=== PATIENT | male | born 1995 | race Caucasian/White ===

== ENCOUNTER 2019-01-05 16:52 | Emergency (ER) | payer SELFPAY ==
--- NOTE | 2019-01-05 17:36 | ER Document Report ---
ED Medical Screen (RME) - General Chief Complaint: Chest Pain Stated Complaint: CHEST PAIN Time Seen by Provider: 01/05/19 17:11 Primary Care Provider: RUCHI WADE MD [Primary Care Provider] - Follow up as needed Notes: 23-year-old male patient reports a 3-day history of substernal chest pain that is almost constant. It disrupts sleep. He reports there is pain with breathing and makes him feel short of breath. He describes the pain is sharp in nature that "brings me to my knees". He also states "I am dazed out", and nausea without vomiting. He also reports she has numbness that involves the entire lef t arm. His past medical history is noncontributory. He reports a family history of a grandfather having a heart attack at age 40, and grandmother with heart attack at some point. His mother has multiple medical problems but no cardiac issues. He does not know about his father's health but knows that he is alive and active. He is somewhat anxious due to his family history. I have greeted and performed a rapid initial assessment of this patient. A comprehensive ED assessment and evaluation of the patient, analysis of test results and completion of the medical decision making process will be conducted by additional ED providers. TRAVEL OUTSIDE OF THE [place] IN LAST 30 DAYS: No - Related Data Allergies/Adverse Reactions: No Known Allergies Allergy (Verified 01/05/19 17:09) Past Medical History - Social History Frequency of alcohol use: None Drug Abuse: None Renal/ Medical History: Denies: Hx Peritoneal Dialysis Past Surgical History: Reports: Hx Nose Surgery - Immunizations Immunizations up to date: Yes Hx Diphtheria, Pertussis, Tetanus Vaccination: No Physical Exam - Vital signs Vitals: Temp Pulse Resp BP Pulse Ox 99 F 83 18 129/85 H 97 01/05/19 17:05 01/05/19 17:05 01/05/19 17:05 01/05/19 17:05 01/05/19 17:05 Course - Vital Signs Vital signs: Temp Pulse Resp BP Pulse Ox 99 F 83 18 129/85 H 97 01/05/19 17:05 01/05/19 17:05 01/05/19 17:05 01/05/19 17:05 01/05/19 17:05 Doctor's Discharge - Discharge Referrals: RUCHI WADE MD [Primary Care Provider] - Follow up as needed
--- NOTE | 2019-01-05 17:57 | RADIOLOGY REPORT (SQ) ---
EXAM DESCRIPTION: CHEST 2 VIEWS COMPLETED DATE/TIME: 01/05/2019 5:49 pm REASON FOR STUDY: chest pain COMPARISON: None. EXAM PARAMETERS: NUMBER OF VIEWS: two views TECHNIQUE: Digital Frontal and Lateral radiographic views of the chest acquired. RADIATION DOSE: NA LIMITATIONS: none FINDINGS: LUNGS AND PLEURA: No opacities, masses or pneumothorax. No pleural effusion. MEDIASTINUM AND HILAR STRUCTURES: No masses or contour abnormalities. HEART AND VASCULAR STRUCTURES: Heart normal size. No evidence for failure. BONES: No acute findings. HARDWARE: None in the chest. OTHER: No other significant finding. IMPRESSION: NO ACUTE RADIOGRAPHIC FINDING IN THE CHEST. TECHNICAL DOCUMENTATION: JOB ID: [id number] [employer]- All Rights Reserved Reading location - IP/workstation name: [email or web address]
[2019-01-05 18:18] LABS: ABSOLUTE EOSINOPHILS # (AUTO) 0.2 10^3/uL (0.0-0.6); ABSOLUTE LYMPHOCYTES (AUTO) 1.6 10^3/uL (0.5-4.7); ABSOLUTE MONOCYTES (AUTO) 0.8 10^3/uL (0.1-1.4); ABSOLUTE NEUT (AUTO) 4.2 10^3/uL (1.7-8.2); BASOPHILS % (AUTO) 0.4 % (0-2); EOSINOPHILS % (AUTO) 2.6 % (0-6); HEMATOCRIT 41.5 % (37.9-51.0); HEMOGLOBIN 14.5 g/dL (13.5-17.0); LYMPHOCYTES % (AUTO) 23.1 % (13-45); MEAN CORPUSCULAR HEMOGLOBIN 30.4 pg (27.0-33.4); MEAN CORPUSCULAR HGB CONC 34.8 g/dL (32.0-36.0); MEAN CORPUSCULAR VOLUME 87 fl (80-97); MONOCYTES % (AUTO) 11.8 % (3-13); PLATELET COUNT 186 10^3/uL (150-450); RED BLOOD COUNT 4.76 10^6/uL (4.35-5.55); RED CELL DISTRIBUTION WIDTH 12.4 % (11.5-14.0); SEGMENTED NEUTROPHILS % (AUTO) 62.1 % (42-78); TOTAL CELLS COUNTED % (AUTO) 100 %; WHITE BLOOD COUNT 6.8 10^3/uL (4.0-10.5)
[2019-01-05 18:36] LABS: ALANINE AMINOTRANSFERASE 47 U/L (21-72); ALBUMIN 4.7 g/dL (3.5-5.0); ALKALINE PHOSPHATASE 90 U/L (38-126); ANION GAP 10 (5-19); ASPARTATE AMINO TRANSFERASE 36 U/L (17-59); BILIRUBIN,DIRECT 0.3 mg/dL (0.0-0.4); BILIRUBIN,TOTAL 0.4 mg/dL (0.2-1.3); BLOOD UREA NITROGEN 14 mg/dL (7-20); CALCIUM 9.8 mg/dL (8.4-10.2); CARBON DIOXIDE 31 mmol/L (22-30); CHLORIDE 100 mmol/L (98-107); CREATINE KINASE 206 U/L (55-170); GLUCOSE 93 mg/dL (75-110); POTASSIUM 4.1 mmol/L (3.6-5.0); SODIUM 140.5 mmol/L (137-145); TOTAL PROTEIN 8.1 g/dL (6.3-8.2)
[2019-01-05 18:48] LABS: TROPONIN I < 0.012 ng/mL
[2019-01-05 18:51] LABS: ERYTHROCYTE SEDIMENTATION RATE 14 mm/hr (0-15)
--- NOTE | 2019-01-05 19:21 | EKG REPORT ---
SEVERITY:- NORMAL ECG - SINUS RHYTHM : Confirmed by: Tesha Johnson MD 05-Jan-2019 19:20:34
[2019-01-05] MEDS ORDERED: IPRATROPIUM/ALBUTEROL 0.5-2.5 MG/3 ML AMPUL NEB ONE (20:28)
[2019-01-05] MEDS ORDERED: IBUPROFEN 600 MG TABLET PO ONE (20:29)
[2019-01-05] MEDS ORDERED: ACETAMINOPHEN 325 MG TABLET PO ONE (20:29)
--- NOTE | 2019-01-05 20:29 | ER Document Report ---
ED General - General Chief Complaint: Chest Pain Stated Complaint: CHEST PAIN Time Seen by Provider: 01/05/19 17:11 Primary Care Provider: RUCHI WADE MD [ACTIVE STAFF] - Follow up as needed Notes: Patient is a 23-year-old male who presents to the emergency department with a chief complaint of chest pain. He states that his pain is in the middle of his chest and he has shortness of breath. His symptoms started 3-4 days ago. It is a constant pain. He does have pain when he takes a deep breath in. Patient was asked to not drinking as much water as he normally does. Does garden work. He states the pain is so bad that it wakes him up at night and it also brings him to his knees. Denies any past medical history. Denies smoking, alcohol, or illicit drug use. TRAVEL OUTSIDE OF THE [place] IN LAST 30 DAYS: No - Related Data Allergies/Adverse Reactions: No Known Allergies Allergy (Verified 01/05/19 17:09) Past Medical History - Social History Smoking Status: Never Smoker Frequency of alcohol use: None Drug Abuse: None Family History: None Patient has suicidal ideation: No Patient has homicidal ideation: No Renal/ Medical History: Denies: Hx Peritoneal Dialysis Past Surgical History: Reports: Hx Nose Surgery - Immunizations Immunizations up to date: Yes Hx Diphtheria, Pertussis, Tetanus Vaccination: No Review of Systems - Review of Systems Notes: REVIEW OF SYSTEMS: CONSTITUTIONAL : Denies recent illness. Denies recent unintentional weight loss. Denies fever, chills, or sweats. EENT: Denies eye, ear, throat, or mouth pain, discharge, or symptoms. Denies nasal or sinus congestion. CARDIOVASCULAR: See HPI RESPIRATORY: See HPI GASTROINTESTINAL: Denies nausea, vomiting, and diarrhea. Denies abdominal pain. Denies constipation. GENITOURINARY: Denies difficulty urinating, burning, blood in urine, urgency or frequency. MUSCULOSKELETAL: Denies neck and back pain. Denies joint pain or swelling. SKIN: Denies rash, itchiness, or lesions HEMATOLOGIC : Denies easy bruising or bleeding. LYMPHATIC: Denies swollen, painful, enlarged glands. NEUROLOGICAL: Denies no numbness or tingling denies weakness. Denies headache. Denies altered mental status. Denies alteration in speech. PSYCHIATRIC: Denies stress, anxiety, alteration in sleep patterns, or depression. All other systems reviewed and negative. Physical Exam - Vital signs Vitals: Temp Pulse Resp BP Pulse Ox 99 F 83 18 129/85 H 97 01/05/19 17:05 01/05/19 17:05 01/05/19 17:05 01/05/19 17:05 01/05/19 17:05 - Notes Notes: PHYSICAL EXAMINATION: GENERAL: Appears well, healthy, well-nourished, no acute distress. HEAD: Normocephalic, atraumatic. EYES: PERRL, conjunctiva normal, all extraocular movements intact, sclera nonicteric ENT: Moist mucous membranes. NECK: Supple, no noticeable swelling, redness, rash. Normal range of motion. LUNGS: Wheezes noted to right lobe throughout. Clear left lobe. CARDIOVASCULAR: S1-S2, regular rate, regular rhythm. Radial pulses 2+, normal. ABDOMEN: Normoactive bowel sounds. Soft, nontender, no guarding, no rebound tenderness, and no masses palpated. EXTREMITIES: Normal strength and range of motion, no pitting or edema. No cyanosis. NEUROLOGICAL: Moves all extremities upon command. Strength 5/5 in all extremities. PSYCH: Normal mood, normal affect. SKIN: Warm, dry. No rash, lesions, ulcerations noted. Normal skin turgor. Course - Re-evaluation Re-evalutation: 01/05/19 20:30 Patient's checks x-ray is negative for any acute findings. His labs are unremarkable other than his CK being elevated. He states that he has also not been drinking as much water as he needs to be. 01/05/19 21:10 She states that he feels better after his DuoNeb treatment. He will be started on Flonase, and albuterol inhaler, and cetirizine. He is in agreement with this plan. Verbal discharge instructions were given to the patient. They verbalized understanding. They are stable for discharge. - Vital Signs Vital signs: Temp Pulse Resp BP Pulse Ox 99 F 83 18 129/85 H 97 01/05/19 17:05 01/05/19 17:05 01/05/19 17:05 01/05/19 17:05 01/05/19 17:05 - Laboratory Result Diagrams: 01/05/19 18:00 01/05/19 18:00 Laboratory results interpreted by me: 01/05/19 18:00 Carbon Dioxide 31 H Creatine Kinase 206 H - EKG Interpretation by Me Additional EKG results interpreted by me: 01/05/19 20:32 Sinus rhythm. Rate 88. KS 140; QRS 90; QT 336; QTC 407. No ST elevations or depression Discharge - Discharge Clinical Impression: Seasonal allergies, Dehydration Chest pain Qualifiers: Chest pain type: other chest pain Qualified Code(s): R07.89 - Other chest pain Condition: Stable Disposition: HOME, SELF-CARE Additional Instructions: You were seen today in the emergency department for chest pain. Your chest x- ray is normal and your EKG is normal. You are also dehydrated based off of your labs. Make sure you stay well hydrated and drink plenty of water. You have been given albuterol inhaler to help with your symptoms. You can take 1 puff every 4-6 hours as needed. You can take ibuprofen 600 mg and Tylenol 1000 g every 6 hours as needed for pain. You have also been started on Flonase and cetirizine. [facility] or a primary care doctor when you are able to. If you have continued chest pain, or have any symptoms that are worrisome to you, please return to the emergency department. Prescriptions: Cetirizine HCl [All Day Allergy] 10 mg PO DAILY #30 tablet Fluticasone Propionate [Flonase Nasal [place] 50 Mcg/[place] 16 gm] 2 sprays NASL Q12 #1 inhaler Referrals: RUCHI WADE MD [ACTIVE STAFF] - Follow up as needed
[2019-01-05] MEDS ORDERED: ALBUTEROL SULFATE HFA (90 MCG/PUFF) 8 GM MDI (1 MDI/ER DISP) IH PRN (21:10)
[2019-01-05 21:59] VITALS: BP 129/73
== END 2019-01-05 22:13 | disposition home or self-care (01) ==
LOC: ER 16:52
DX: R07.9 Chest pain, unspecified (principal); R06.02 Shortness of breath; E86.0 Dehydration; J30.1 Allergic rhinitis due to pollen
CPT/HCPCS: 93005; 94640; 99284; 36415; 82553; 82550; 85025; 85652; 80053; 84484; 85379; 71046; 93010; J3490; J7620